=== PATIENT | female | born 1960 | race Caucasian/White ===

== ENCOUNTER 2022-10-28 15:22 | Emergency (ER) | payer MEDICARE ==
[~2022-10-28] VITALS: Ht 165.1 cm; Wt 86.2 kg
[2022-10-28 15:49] VITALS: BP 133/86
== END 2022-10-28 17:10 | disposition home or self-care (01) ==
LOC: ER 15:22
DX: S52.042A Displaced fracture of coronoid process of left ulna, initial encounter for closed fracture (principal); S50.02XA Contusion of left elbow, initial encounter; Z88.6 Allergy status to analgesic agent; Z88.5 Allergy status to narcotic agent; Z88.8 Allergy status to other drugs, medicaments and biological substances; V00.121A Fall from non-in-line roller-skates, initial encounter; Y93.51 Activity, roller skating (inline) and skateboarding
CPT/HCPCS: 73080; 99283-25